=== PATIENT | female | born 1990 | race Caucasian/White ===

== ENCOUNTER 2019-12-27 09:53 | Emergency (ER) | payer OTHER ==
[~2019-12-27] VITALS: Ht 153.7 cm; Wt 64.0 kg
[2019-12-27 10:03] VITALS: BP 127/87
--- NOTE | 2019-12-27 10:10 | NUR ---
pt amb to bed 11
--- NOTE | 2019-12-27 10:11 | NUR ---
29/F BIB SELF C/O VAGINAL BLEEDING, DIZZINESS X LAST NIGHT. LMP 3 weeks ago, continuous with on/off bleeding. States 2x large gush of blood from vagina last night. Dizziness last night. Hx- 10cm ovarian cyst/tumor removed with 2013 with possible salpingectomy (unspecified side). PATIENT STATES PAIN OF 0/10 AT THIS TIME. PATIENT POSITIONED FOR COMFORT; HOB ELEVATED; BEDRAILS UP X1; BED DOWN. ER MD MADE AWARE OF PT STATUS.
--- NOTE | 2019-12-27 10:22 | NUR ---
LAB AT BEDSIDE.
--- NOTE | 2019-12-27 10:35 | NUR ---
US AT BEDSIDE.
[2019-12-27 10:37] LABS: BASOPHILS % (AUTO) 0.6 % (0.0-2.0); EOSINOPHILS % (AUTO) 1.3 % (0.0-4.0); HEMATOCRIT 35.5 % (36-48); HEMOGLOBIN 12.2 g/dL (12.0-16.0); LYMPHOCYTES # (AUTO) 1.5 K/uL (2.5-16.5); MEAN CORPUSCULAR HEMOGLOBIN 33 pg (27-31); MEAN CORPUSCULAR HGB CONC 34 g/dL (33-37); MEAN CORPUSCULAR VOLUME 96.4 fL (80-94); MONOCYTES # (AUTO) 0.3 K/uL (0.8-1.0); MONOCYTES % (AUTO) 8.7 % (1.7-9.3); NEUTROPHILS % (AUTO) 50.4 % (42.2-75.2); PLATELET COUNT (AUTO) 259 K/uL (140-450); RED BLOOD CELL COUNT(AUTO) 3.68 MIL/uL (4.20-5.40); RED CELL DISTRIBUTION WIDTH 12.7 % (11.6-13.7); WHITE BLOOD COUNT (AUTO) 3.9 K/uL (4.8-10.8)
[2019-12-27 10:38] LABS: APPEARANCE,URINE CLEAR (CLEAR); BILIRUBIN,URINE NEGATIVE (NEGATIVE); BLOOD, URINE NEGATIVE (NEGATIVE); COLOR,URINE YELLOW (YELLOW); LEUKOCYTE ESTERASE ,URINE NEGATIVE (NEGATIVE); NITRITE, URINE NEGATIVE (NEGATIVE); UGLUCOSE NEGATIVE (NEGATIVE)
--- NOTE | 2019-12-27 11:04 | NUR ---
Aarti boothe in ED - 12/27/19 at [address] MENDOZA EVALUATING PT AT BEDSIDE
--- NOTE | 2019-12-27 11:04 | NUR ---
Patient being evaluated by DR MENDOZA at bedside.
[2019-12-27 12:07] VITALS: BP 119/67
--- NOTE | 2019-12-27 12:07 | NUR ---
Patient discharged with v/s stable. Written and verbal after care instructions given and explained. Patient verbalized understanding. Ambulatory with steady gait. All questions addressed prior to discharge. Advised to follow up with PMD.
== END 2019-12-27 12:07 | disposition home or self-care (01) ==
LOC: MED 09:53
DX: N92.0 Excessive and frequent menstruation with regular cycle (principal); Z98.890 Other specified postprocedural states; Z88.0 Allergy status to penicillin; Z88.2 Allergy status to sulfonamides; Z88.8 Allergy status to other drugs, medicaments and biological substances
CPT/HCPCS: 36415; 76830; 81003; 81025; 84702; 85025; 99284; Q0092